=== PATIENT | male | born 1965 | race American Indian/Alaskan Native ===

== ENCOUNTER 2016-08-11 10:18 | Outpatient (CLI) | payer OTHER ==
--- NOTE | 2016-08-11 11:16 | XRay Report ---
BILATERAL KNEE RADIOGRAPHS INDICATION: Gout, sleep apnea, heart condition, hearing problems, poor vision. COMPARISON: None similar. FINDINGS: AP and lateral bilateral knee radiographs demonstrate intact articulation. Mild to moderate right medial knee compartment narrowing and minimal patellar articular pole spurring noted. Patellar enthesophytes superiorly. No suprapatellar effusions. CONCLUSION: Osteoarthrosis, right greater than left with moderate right medial knee compartment narrowing noted, as described. Thank you for the opportunity to participate in this patient's care.
== END 2016-08-11 10:19 | disposition home or self-care (01) ==
LOC: XRAY 10:18
PROVIDERS: ATTEND Internal Medicine
DX: M17.0 Bilateral primary osteoarthritis of knee (principal); G47.30 Sleep apnea, unspecified; R09.89 Other specified symptoms and signs involving the circulatory and respiratory systems; H54.7 Unspecified visual loss; M10.9 Gout, unspecified

== ENCOUNTER 2021-09-02 18:26 | Emergency (ER) | payer OTHER ==
[2021-09-02] MEDS ORDERED: IBUPROFEN 400 MG TAB PO ONE (21:28)
[2021-09-02] MEDS ORDERED: ACETAMINOPHEN 325 MG TAB PO ONE (21:28)
--- NOTE | 2021-09-02 21:29 | Emergency Department Report ---
ED Lower Extremity HPI - General Chief Complaint: Extremity Injury, Lower Stated Complaint: TOE INFECTED Time Seen by Provider: 09/02/21 21:24 Source: patient, RN notes reviewed, old records reviewed Mode of arrival: Ambulatory Limitations: No Limitations - History of Present Illness Initial Comments: The patient was evaluated in the emergency department for symptoms described in the history of present illness. He/she was evaluated in the context of the global COVID-19 pandemic, which necessitated consideration that the patient might be at risk for infection with the virus that causes COVID-19. Institutional protocols and algorithms that pertain to the evaluation of patients at risk for COVID-19 are in a state of rapid change based on informat ion released by regulatory bodies including the CDC and federal and state organizations. These policies and algorithms were followed during the patient's care in the emergency department. Please note that these policies, procedures and recommendations changed on a rapid basis. This is a 55-year-old gentleman who presents to the emergency room today with complaint of right little toe pain, and rash in the webspace between his little toe, and fourth toe. Symptoms present for months. He also endorses right toe pain, swelling, without additional complaints. He specifically denies additional complaints MD Complaint: other -: month(s) Injury: Toes: Right Type of Injury: unknown Improves With: rest Worsens With: movement, palpation - Related Data Previous Rx's Medication Instructions Recorded Last Taken Type Amlodipine Besylate [Norvasc] 10 mg PO DAILY #30 tablet 03/21/18 Unknown Rx Aspirin [Aspirin BABY CHEW TAB] 81 mg PO QDAY #30 tab.chew 03/21/18 Unknown Rx AtorvaSTATin [Lipitor] 40 mg PO QHS #30 tablet 03/21/18 Unknown Rx Lisinopril [Zestril TAB] 2.5 mg PO QDAY #30 tablet 03/21/18 Unknown Rx Metoprolol Tartrate 100 mg PO DAILY #30 tablet 03/21/18 Unknown Rx Acetaminophen [Non-Aspirin Extra 500 mg PO Q6HR PRN #30 tablet 09/02/21 Unknown Rx Strength] Clotrimazole 1% [Lotrimin 1%] 1 applic TP BID 45 Days #1 tube 09/02/21 Unknown Rx Ibuprofen [Motrin] 600 mg PO Q8H PRN #30 tablet 09/02/21 Unknown Rx Allergies Allergy/AdvReac Type Severity Reaction Status Date / Time No Known Allergies Allergy Verified 03/21/18 06:42 ED Review of Systems ROS: Stated complaint: TOE INFECTED Other details as noted in HPI Comment: All other systems reviewed and negative Constitutional: denies: fever Musculoskeletal: joint swelling, arthralgia, myalgia Skin: rash, lesions, pruritus ED Past Medical Hx - Past Medical History Previous Medical History?: No Hx Hypertension: Yes Additional medical history: High Cholesterol, Sinus problems, Sleep Apnea - Surgical History Past Surgical History?: No - Social History Smoking Status: Current Every Day Smoker - Medications Home Medications: Home Medications Medication Instructions Recorded Confirmed Last Taken Type Amlodipine Besylate [Norvasc] 10 mg PO DAILY #30 tablet 03/21/18 Unknown Rx Aspirin [Aspirin BABY CHEW TAB] 81 mg PO QDAY #30 tab.chew 03/21/18 Unknown Rx AtorvaSTATin [Lipitor] 40 mg PO QHS #30 tablet 03/21/18 Unknown Rx Lisinopril [Zestril TAB] 2.5 mg PO QDAY #30 tablet 03/21/18 Unknown Rx Metoprolol Tartrate 100 mg PO DAILY #30 tablet 03/21/18 Unknown Rx Acetaminophen [Non-Aspirin Extra 500 mg PO Q6HR PRN #30 tablet 09/02/21 Unknown Rx Strength] Clotrimazole 1% [Lotrimin 1%] 1 applic TP BID 45 Days #1 tube 09/02/21 Unknown Rx Ibuprofen [Motrin] 600 mg PO Q8H PRN #30 tablet 09/02/21 Unknown Rx ED Physical Exam - General Limitations: No Limitations General appearance: alert, in no apparent distress, obese - Head Head exam: Present: atraumatic, normocephalic - Eye Eye exam: Present: normal appearance, EOMI. Absent: nystagmus - ENT ENT exam: Present: normal exam, normal orophraynx, mucous membranes moist, normal external ear exam - Neck Neck exam: Present: normal inspection, full ROM. Absent: tenderness, meningismus - Respiratory Respiratory exam: Present: normal lung sounds bilaterally. Absent: respiratory distress, wheezes, rales, rhonchi, stridor, decreased breath sounds - Cardiovascular Cardiovascular Exam: Present: regular rate, normal rhythm, normal heart sounds. Absent: bradycardia, tachycardia, irregular rhythm, systolic murmur, diastolic murmur, rubs, gallop - GI/Abdominal GI/Abdominal exam: Present: soft. Absent: distended, tenderness, guarding, rebound, rigid, pulsatile mass - Rectal Rectal exam: Present: deferred - Extremities Exam Extremities exam: Present: normal inspection, full ROM, tenderness (There is right little toe tenderness, without pus, streaking, or erythema. There is a fungal appearing rash noted in the intertrigo in his webspace between the fourth and fifth toe), other (2+ pulses noted in the bilateral upper and lower extremities. There is no palpable cord. negative Homans sign. Muscular compartments are soft. The pelvis is stable.). Absent: pedal edema, calf tenderness - Back Exam Back exam: Present: normal inspection. Absent: tenderness, CVA tenderness (R), CVA tenderness (L), paraspinal tenderness, vertebral tenderness - Neurological Exam Neurological exam: Present: alert, oriented X3, normal gait, other (No facial droop. Tongue midline. Extraocular movements intact bilaterally. Facial sensation intact to light touch in V1, V2, V3 distribution bilaterally. 5 and a 5 strength in 4 extremities. Sensation intact to light touch in 4 extremities.). Absent: motor sensory deficit - Psychiatric Psychiatric exam: Present: normal affect, normal mood - Skin Skin exam: Present: warm, dry, intact, normal color. Absent: rash ED Course Vital Signs 09/02/21 09/02/21 09/02/21 18:33 22:05 22:06 Temperature 98.6 F Pulse Rate 73 Respiratory 16 16 16 Rate Blood Pressure 132/84 O2 Sat by Pulse 96 Oximetry - Reevaluation(s) Reevaluation #1: 09/02/21 22:18 Differential diagnosis, include but not limited to: Athlete's foot, sprain, strain Assessment and plan: 55-year-old gentleman with probable athlete's foot, and right little toe sprain/strain. He does not appear to have any evidence of superinfection. He is neurovascularly intact. X-ray of the right little toe pending. Tylenol and Motrin for pain, weightbearing as tolerated, clotrimazole Presuming x-ray shows no acute findings which we anticipate, weightbearing as tolerated, outpatient follow-up 09/02/21 23:01 X-ray negative for acute findings. Patient sleeping comfortably in stretcher and in no acute distress. Discharged as planned. ED Lower Extremity MDM - Lab Data Vital Signs 09/02/21 09/02/21 09/02/21 18:33 22:05 22:06 Temperature 98.6 F Pulse Rate 73 Respiratory 16 16 16 Rate Blood Pressure 132/84 O2 Sat by Pulse 96 Oximetry - Radiology Data Radiology results: report reviewed, image reviewed RIGHT TOE(S) 4 VIEW(S) INDICATION / CLINICAL INFORMATION: LEFT 5TH TOE PAIN COMPARISON: None available. FINDINGS: BONES / JOINT(S): No acute fracture or subluxation. No significant arthritis. SOFT TISSUES: No significant abnormality. ADDITIONAL FINDINGS: None. IMPRESSION: 1. No acute findings. Signer Name: Manfred Warren MD Signed: 09/02/2021 9:45 PM Workstation Name: [id number] Critical care attestation.: If time is entered above; I have spent that time in minutes in the direct care of this critically ill patient, excluding procedure time. ED Disposition Clinical Impression: Toe pain, right Athletes foot Qualifiers: Laterality: right Qualified Code(s): B35.3 - Tinea pedis Disposition: 01 HOME / SELF CARE / HOMELESS Is pt being admited?: No Does the pt Need Aspirin: No Condition: Good Instructions: Athlete's Foot, [id number] Additional Instructions: Please do not wear flip-flops, or slippers. Wear shoes with appropriate arch support. Patient appears to have athlete's foot in the toe webspace. Wash with gentle soap and water once every 12 hours. Keep the toe dry otherwise. Apply the topical medication as directed. Take the prescription medications for pain as directed. Follow-up with a primary care doctor or construction technician within the next 2 weeks. Please return to the emergency room right away with new pain, worsened pain, migration of pain, projectile vomiting, change in mental status, confusion, inability tolerate liquid feeds, new, worsened or different symptoms not present on the initial emergency room evaluation Weightbearing as tolerated. Alternate ice packs and heat packs in addition to the pain medication as needed. Prescriptions: Clotrimazole 1% [Lotrimin 1%] 1 applic TP BID 45 Days #1 tube Ibuprofen [Motrin] 600 mg PO Q8H PRN #30 tablet PRN Reason: Pain Acetaminophen [Non-Aspirin Extra Strength] 500 mg PO Q6HR PRN #30 tablet PRN Reason: Pain , Severe (7-10) Referrals: RICARDO PRASAD DPM [Staff Physician] - 3-5 Days [facility] [Provider Group] - 3-5 Days Forms: Work/School Release Form(ED)
--- NOTE | 2021-09-02 22:50 | XRay Report ---
RIGHT TOE(S) 4 VIEW(S) INDICATION / CLINICAL INFORMATION: LEFT 5TH TOE PAIN COMPARISON: None available. FINDINGS: BONES / JOINT(S): No acute fracture or subluxation. No significant arthritis. SOFT TISSUES: No significant abnormality. ADDITIONAL FINDINGS: None. IMPRESSION: 1. No acute findings. Signer Name: Manfred Warren MD Signed: 09/02/2021 10:45 PM Workstation Name: [id number]
[2021-09-02 23:47] VITALS: BP 162/78
== END 2021-09-02 23:46 | disposition home or self-care (01) ==
LOC: ED 18:26
DX: B35.3 Tinea pedis (principal); M79.674 Pain in right toe(s); I10 Essential (primary) hypertension; G47.30 Sleep apnea, unspecified; E78.00 Pure hypercholesterolemia, unspecified; F17.290 Nicotine dependence, other tobacco product, uncomplicated
CPT/HCPCS: 99283